=== PATIENT | female | born 1940 | race Caucasian/White ===

== ENCOUNTER 2016-07-26 07:16 | Day surgery (SDC) | payer MEDICARE, BC ==
[2016-07-26] MEDS ORDERED: Dextrose 5%-Lactated Ringers 1,000 ML IV SCH (08:00)
[2016-07-26] MEDS ORDERED: Propofol 200 MG/20 ML SDV ONE (08:48)
[2016-07-26] MEDS ORDERED: Midazolam 1 MG/ML 2 ML SDV ONE (08:48)
[2016-07-26] MEDS ORDERED: fentaNYL 100 MCG/2 ML SDV ONE (08:48)
[2016-07-26 11:41] VITALS: BP 145/77
--- NOTE | 2016-08-06 14:22 | OR ---
DATE OF PROCEDURE: 07/26/2016 PREOPERATIVE DIAGNOSIS: History of colon polyps. POSTOPERATIVE DIAGNOSES: 1. A single 3-mm polyp of rectosigmoid (18 cm). 2. Left-sided uncomplicated diverticulosis. OPERATIVE PROCEDURE: Flexible colonoscopy with polypectomy by snare technique (24032). ANESTHESIA: IV sedation. INDICATION FOR PROCEDURE: The patient presents for followup of a previous history of colonic polyps x3 with a colonoscopy with biopsy and a polypectomy as indicated. Potential risks of procedure were including bleeding and perforation were discussed, and the patient wishes to proceed. DETAILS OF THE PROCEDURE: The patient was taken to the operating room and placed in a left lateral decubitus position. IV sedation was administered, after which the initial digital rectal exam was performed and was unremarkable. Colonoscope was then passed to the level of the rectum with retroflexion revealing uncomplicated hemorrhoidal columns. The scope was eventually passed to the level of cecum. The prep was fairly good with only being a small amount of liquid stool present. The only abnormality was that of a small, roughly 2 mm polyp located in the rectosigmoid area. This being about 15 cm from the dentate line. Apart from that, there was some uncomplicated left-sided diverticulosis. No other areas of neoplasia or colitis were identified. The scope was then withdrawn, finding the polyp once again. This was encircled at its base with the Snare and the base cauterized. The specimen was then delivered from the field. Good hemostasis was noted at the polypectomy site, and the scope then withdrawn and the procedure concluded. There were no evident complications. We will contact the patient. In all likelihood this is someone who should have a repeat colonoscopy in 2 years. We will contact her after the Pathology report has been completed. Hilario Fung MD /[id number]
== END 2016-07-26 11:47 | disposition home or self-care (01) ==
LOC: JP.SDS 07:16
PROVIDERS: ATTEND Surgery
DX: D12.7 Benign neoplasm of rectosigmoid junction (principal); K57.30 Diverticulosis of large intestine without perforation or abscess without bleeding
CPT/HCPCS: 45385; 88305; J2250; J2704; J3010; J7042

== ENCOUNTER 2018-10-28 08:18 | Day surgery (SDC) | payer MEDICARE ==
[2018-10-28] MEDS ORDERED: Propofol 200 MG/20 ML SDV ONE ×2 (09:24→10:19)
[2018-10-28] MEDS ORDERED: fentaNYL 100 MCG/2 ML SDV ONE (09:24)
[2018-10-28] MEDS ORDERED: Lactated Ringers 1,000 ML IV SCH (09:30)
[2018-10-28 11:11] VITALS: BP 124/86
--- NOTE | 2018-10-29 08:46 | OR ---
DATE OF PROCEDURE: 10/28/2018 PREOPERATIVE DIAGNOSIS: History of colon polyps. POSTOPERATIVE DIAGNOSES: Diverticulosis, small transverse colon polyp, history of colon polyps. PROCEDURE: Colonoscopy to the cecum. SURGEON: Judd Massey MD ANESTHESIA: IV anesthesia with monitored anesthesia care. INDICATION: This 78-year-old white female is referred for a colonoscopy. Her last colonoscopic exam was done 2 to 3 years ago. She has a history of colon polyps. I counseled her for the procedure, including risks and alternatives, and she gave her informed consent to proceed. DESCRIPTION OF PROCEDURE: The patient was placed in the left lateral decubitus position. IV anesthesia was administered by the Anesthesia Service. Time-out was held. A rectal exam was performed, which was unremarkable. The flexible video Olympus colonoscope was introduced through her anus, up her rectum, and out her colon all the way to the cecum. En route, we saw the area that was apparently tattooed at about 18 cm from the anal verge where a prior polyp was. This area was clear. Additionally, we saw several left- sided diverticula. There was no bleeding or inflammation associated with any of them. Once the cecum was reached, the scope was slowly withdrawn, examining the mucosa throughout. In the transverse colon a small polyp was seen and removed with the biopsy forceps. No additional mucosal abnormalities were noted. The scope was retroflexed in the rectum with the distal rectum appearing unremarkable. The scope was straightened and removed. She tolerated the procedure well Judd Massey MD /[id number] [facility]
== END 2018-10-28 11:25 | disposition home or self-care (01) ==
LOC: JP.SDS 08:18
PROVIDERS: ATTEND Surgery
DX: Z12.11 Encounter for screening for malignant neoplasm of colon (principal); D12.3 Benign neoplasm of transverse colon; K57.30 Diverticulosis of large intestine without perforation or abscess without bleeding; I10 Essential (primary) hypertension; E78.00 Pure hypercholesterolemia, unspecified; E03.9 Hypothyroidism, unspecified; Z91.018 Allergy to other foods; Z86.010 Personal history of colon polyps
CPT/HCPCS: 45380; 88305; J2704; J3010; J7120

== ENCOUNTER 2023-08-25 06:19 | Day surgery (SDC) | payer MEDICARE ==
[2023-08-25 07:27] LABS: HEMATOCRIT 28.9 % (34.3-46.0); HEMOGLOBIN 8.9 g/dL (11.2-15.5)
[2023-08-25] MEDS ORDERED: Propofol 200 MG/20 ML SDV ONE (07:29)
[2023-08-25] MEDS ORDERED: fentaNYL 50 MCG/ML SDV ONE (07:29)
[2023-08-25] MEDS: Lactated Ringers 1,000 ML IV SCH (07:31)
[2023-08-25 10:00] VITALS: BP 174/80; PULSE 64
== END 2023-08-25 10:31 | disposition home or self-care (01) ==
LOC: JP.SDS 06:19
PROVIDERS: ATTEND Family Medicine
DX: C18.2 Malignant neoplasm of ascending colon (principal); D62 Acute posthemorrhagic anemia; I10 Essential (primary) hypertension; Z91.018 Allergy to other foods
CPT/HCPCS: 00813; 36415; 43235; 45380; 45381; 85014; 85018; J2704; J3010; J7120

== ENCOUNTER 2023-10-04 22:15 | Emergency (ER) | payer MEDICARE ==
[2023-10-04] MEDS ORDERED: Sodium Chloride 0.9% 10 ML Syringe FLUSH PRN (23:44)
[2023-10-04 23:50] LABS: BASOPHILS ABSOLUTE AUTO 0.04 K/uL (0.00-0.10); BASOPHILS PERCENT AUTO 0.6 % (0.1-1.3); EOSINOPHILS ABSOLUTE AUTO 0.43 K/uL (0.00-0.40); EOSINOPHILS PERCENT AUTO 6.5 % (0.0-5.4); HEMATOCRIT 27.4 % (34.3-46.0); HEMOGLOBIN 8.9 g/dL (11.2-15.5); IMMATURE GRAN PERCENT AUTO 0.3 % (0.0-0.7); LYMPHOCYTES ABSOLUTE AUTO 0.77 K/uL (0.8-3.3); LYMPHOCYTES PERCENT AUTO 11.7 % (11.4-47.7); MEAN CORPUSCULAR HEMOGLOBIN 27.7 pg (31.6-35.5); MEAN CORPUSCULAR HGB CONC 32.5 g/dL (31.6-35.5); MEAN CORPUSCULAR VOLUME 85.4 fL (81.4-99.0); MONOCYTES ABSOLUTE AUTO 0.45 K/uL (0.20-0.90); MONOCYTES PERCENT AUTO 6.8 % (3.3-12.6); NEUTROPHILS ABSOLUTE AUTO 4.87 K/uL (1.0-7.6); NEUTROPHILS PERCENT AUTO 74.1 % (40.0-78.1); PLATELET COUNT,PLT 177 K/uL (130-375); RED BLOOD CELL COUNT 3.21 M/uL (3.77-5.24); WHITE BLOOD CELL COUNT,WBC 6.6 K/uL (3.2-11.0)
[2023-10-04 23:55] LABS: IMMATURE GRAN ABSOLUTE AUTO 0.02 K/uL (0.00-0.23)
[2023-10-05 00:04] LABS: ALANINE AMINOTRANSFERASE,ALT 16 U/L (12-78); ALBUMIN 3.1 g/dL (3.4-5.0); ALKALINE PHOSPHATASE 60 U/L (46-116); ANION GAP 7.4 mmol/L (5.0-14.0); ASPARTATE AMNIOTRANSFERASE,AST 37 U/L (15-37); BILIRUBIN TOTAL 0.2 mg/dL (0.2-1.0); BLOOD UREA NITROGEN,BUN 16 mg/dL (7-18); CALCIUM 8.3 mg/dL (8.5-10.1); CARBON DIOXIDE,CO2 26 mmol/L (21-32); CHLORIDE,CL 108 mmol/L (100-108); CREATININE 0.9 mg/dL (0.6-1.0); EST CRCL DRUG DOSING (CG) 38.77 mL/min; ESTIMATED GFR 64 mL/min (>60); GLUCOSE RANDOM 98 mg/dL (74-106); PROTEIN TOTAL,TP 6.3 g/dL (6.4-8.2); SODIUM,NA 141 mmol/L (140-148)
[2023-10-05] MEDS: Sodium Chloride 0.9% 80 ML IV SCH (00:08)
[2023-10-05] MEDS: Iopamidol 612 MG/ML 100 ML Bottle IV ONE (00:08)
[2023-10-05] MEDS: Lactated Ringers 1,000 ML IV SCH (00:21)
[2023-10-05 02:16] LABS: PROTHROMBIN TIME 10.6 sec (9.2-10.6)
[2023-10-05 05:45] VITALS: BP 130/80; PULSE 73
== END 2023-10-05 06:29 ==
LOC: JP.ED 22:15
DX: K92.1 Melena (principal); I10 Essential (primary) hypertension; E78.00 Pure hypercholesterolemia, unspecified; Z90.49 Acquired absence of other specified parts of digestive tract; Z90.710 Acquired absence of both cervix and uterus; Z91.018 Allergy to other foods; Z79.899 Other long term (current) drug therapy
CPT/HCPCS: 36415; 74177; 80053; 83605; 83690; 85018; 85025; 85610; 96360; 99285; J3490; J7120; Q9967; 99284

== ENCOUNTER 2024-11-03 08:28 | Day surgery (SDC) | payer MEDICARE ==
[~2024-11-03 08:28] MED LIST: Propofol 200 MG/20 ML SDV ONE; fentaNYL 50 MCG/ML SDV ONE
[2024-11-03] MEDS: Lactated Ringers 1,000 ML IV SCH (09:18)
[2024-11-03 11:18] VITALS: BP 121/82; PULSE 73
== END 2024-11-03 11:22 | disposition home or self-care (01) ==
LOC: JP.SDS 08:28
PROVIDERS: ATTEND Surgery
DX: Z12.11 Encounter for screening for malignant neoplasm of colon (principal); K57.30 Diverticulosis of large intestine without perforation or abscess without bleeding; Z98.0 Intestinal bypass and anastomosis status; Z85.038 Personal history of other malignant neoplasm of large intestine
CPT/HCPCS: 00811; 45380; J2704; J3010; J7120; 88305